=== PATIENT | male | born 1950 | race Caucasian/White ===

== ENCOUNTER → 2018-05-21 08:38 | Outpatient (CLI) | payer MEDICARE, SELFPAY ==
--- NOTE | 2018-05-21 | DI.US.S_ITS ---
PROCEDURE: US RENAL COMPLETE INDICATIONS: CHRONIC KIDNEY DISEASE TECHNIQUE: Real-time scanning was performed of the kidneys and bladder, with image documentation. COMPARISON: [facility], , RENAL COMPLETE, 08/14/2011, 13:07. FINDINGS: Kidneys: Kidneys are normal in size. Right kidney measures 9.5 cm long; left kidney measures 9.4 cm long. Right renal cortical thickness is 1.3 cm; left renal cortical thickness is 1.5 cm. Renal cortical echotexture is normal. No hydronephrosis. 6 mm nonobstructing left renal calcification. Bladder: Pre-void bladder volume is 131 mL. Post-void residual is 10 mL. Pre-void images demonstrate no intraluminal masses or stones. On pre-void images, neither ureteral jets are noted with color Doppler interrogation. (Of note, ureteral jets may not be detectable in up to 25% of cases due to insufficient differences in specific gravity between ureteral and bladder urine). Miscellaneous: No free pelvic fluid. IMPRESSION: 1. 6 mm nonobstructing left renal calcification. Kidneys otherwise are normal. Dictated by: David Moore [facility] Interpreted: Margaret Gongora MD on 05/21/2018 at 10:34 Approved by: Margaret Gongora MD, PhD on 05/21/2018 at 14:51
== END ==
PROVIDERS: Visit Provider Internal Medicine
DX: N18.9 Chronic kidney disease, unspecified (principal); N20.0 Calculus of kidney
CPT/HCPCS: 76770

== ENCOUNTER → 2019-11-27 14:13 | Outpatient (CLI) | payer MEDICARE, SELFPAY ==
[2019-11-27 15:12] LABS: BUN Creatinine Ratio 15.9 (6-22); Blood Urea Nitrogen 29 mg/dL (9-20); Calcium 9.4 mg/dL (8.4-10.2); Carbon Dioxide 23 mmol/L (22-32); Chloride 104 mmol/L (98-107); Estimated Glomerular Filt Rate 37.1 mL/min (>60); Glucose 169 mg/dL (80-110); HEMOLYSIS < 15 (0-50); Potassium 4.6 mmol/L (3.4-5.1); Sodium 138 mmol/L (137-145)
== END ==
PROVIDERS: PCP Internal Medicine; Referring Provider Internal Medicine; Visit Provider Internal Medicine
DX: N18.9 Chronic kidney disease, unspecified (principal)
CPT/HCPCS: 36415; 80048

== ENCOUNTER → 2020-04-03 09:11 | Outpatient (CLI) | payer MEDICARE, SELFPAY ==
[2020-04-04 15:01] LABS: COVID19 Sendout Not Detected (Not Detect)
== END ==
PROVIDERS: PCP Internal Medicine; Visit Provider Physician Assistant
DX: Z01.812 Encounter for preprocedural laboratory examination (principal)
CPT/HCPCS: 87635

== ENCOUNTER 2020-04-06 07:22 | Day surgery (SDC) | payer MEDICARE, SELFPAY ==
--- NOTE | 2020-04-06 | PATH_ITS ---
[facility] Accession Number: [id number] . 01 Material submitted: . colon - DESCENDING COLON POLYP . 01 Clinical history: . A: POLYP X2 . 02 Diagnosis: Descending Colon, Polyp: Hyperplastic polyp. MRV 04/08/2020 1017 Local . 02 Electronically signed: . Jay Tamayo MD, PhD, Pathologist NPI- [id number] . 01 Gross description: . The specimen is received in formalin, labeled descending colon polyp and consists of two zimmerman-pink fragments of soft tissue, measuring 1.2 x 1.0 x 0.3 cm in aggregate. The specimen is entirely submitted in cassette A1. ([id number]) /[facility] 04/07/2020 1738 Local . 02 Pathologist provided ICD-10: K63.5 . 02 CPT . 372184 Performed at: 01 [facility] [address], [place], [place] [id number] MD Jamie Mann MD Phone: [phone] Performed at: 02 [facility] [address] [place], [place] [id number] MD Cailin Londono MD Phone: [phone]
[2020-04-06 07:56] VITALS: BP 156/81; PULSE 92; RESP 16; TEMP 36.6; O2SAT 99; BMI 27.6
--- NOTE | 2020-04-06 08:38 | PM.HP.1 ---
History of Present Illness History of Present Illness Chief complaint: SCREENING COLONOSCOPY Patient History Medical History GERD (gastroesophageal reflux disease) (Acute) High cholesterol (Acute) Hypertension (Acute) Surgical History H/O heart artery stent (Acute) Family & Social History Social History: household members spouse Tobacco & Substance use: Smoking Status Former smoker alcohol intake former Substance Use Type does not use Meds Home Medications and Allergies Home Medications Medication Instructions Recorded Confirmed Type atorvastatin [Lipitor] 40 mg PO HS #0 07/18/12 04/06/20 History folic acid 1 mg PO QDAY #0 07/18/12 04/06/20 History lisinopril 20 mg PO QDAY #0 07/18/12 04/06/20 History pantoprazole [Protonix] 40 mg PO QDAY #0 07/18/12 04/06/20 History amlodipine 5 mg PO DAILY 04/06/20 04/06/20 History aspirin 81 mg PO DAILY 04/06/20 04/06/20 History cetirizine 10 mg PO DAILY 04/06/20 04/06/20 History Allergies Allergy/AdvReac Type Severity Reaction Status Date / Time No Known Drug Allergies Allergy Verified 04/06/20 07:51 Review of Systems Review of Systems ROS: Yes All systems reviewed with the patient and are negative except as otherwise documented Exam Vital Signs (past 8 hours): - 04/06/20 07:56 Temperature 98 F Pulse Rate 92 H Respiratory Rate 16 Blood Pressure 156/81 H Pulse Oximetry 99 Oxygen Delivery Method Room Air Narrative Exam Narrative: Awake alert and oriented x3, pupils equal round reactive to light, oropharynx clear, heart regular rate and rhythm, lungs clear to auscultation bilaterally, abdomen nontender and nondistended, extremities without edema, no gross neurologic deficits noted Assessment & Plan Assessment & Plan narrative: colon cancer screening colonoscopy COVID-19 COVID-19 status: Negative
[2020-04-06] MEDS: fentaNYL 250 MCG/5 ML INJ IV (08:45)
[2020-04-06] MEDS: MIDAZOLAM 5 MG/5 ML VIAL IV (08:46)
[2020-04-06 09:09] VITALS: BP 100/57; PULSE 84; RESP 17; TEMP 36.5; O2SAT 99
--- NOTE | 2020-04-06 09:12 | PM.OP.ENDO ---
Operative Date/Time/Diagnoses Date of procedure: 04/06/20 Procedure & Clinicians Study performed: Colonoscopy with forceps polypectomy Moderate conscious sedation was administered by the endoscopy nurse and supervised by the endoscopist. The following parameters were monitored: Oxygen saturation, heart rate, blood pressure, and response to care. 4mg midazolam and 100mcg fentanyl given. Same procedure as scheduled: Yes Indications: Colon cancer screening Procedure Notes Procedure in detail: Prior to the procedure, history and physical was performed, and patient medications and allergies were reviewed. Preprocedure nursing history and assessment was reviewed. Patient identification and proposed procedure were verified by the physician and nurse in the procedure room. The physical status of the patient was reassessed after the procedure. After informed consent was obtained including risks, benefits, and alternatives, the scope was passed under direct vision. Throughout the procedure, the patient's blood pressure, pulse, and oxygen saturations were monitored continuously. The colonoscope was introduced through the anus and advanced to the cecum as identified by the appendiceal orifice and ileocecal valve. The patient tolerated the procedure well. Bowel prep was deemed adequate to detect polyps greater than 5 mm. Perianal and digital rectal examinations were unremarkable. Retroflexion in the rectum revealed hypertrophied anal papilla and grade 2 internal hemorrhoids. Two polyps measuring 2 mm in diameter were removed from the descending colon with a cold biopsy forceps and retrieved The remainder of the colon was normal-appearing Impression: Hypertrophied anal papilla Internal hemorrhoids Two diminutive polyps removed from the descending colon Sedation minutes: 19 Complications: other (EBL minimal. No complications) Post-procedure Plan for aftercare: Follow-up pathology results Repeat colonoscopy a date to be determined based on pathology results Resume home medications Resume previous diet Patient has a contact number available for emergencies. The signs and symptoms of potential delayed complications were discussed with the patient. Return to normal activities tomorrow. Written discharge instructions were provided to the patient. Discharge home with escort
[2020-04-06 09:15] VITALS: BP 117/60; PULSE 84; RESP 15; O2SAT 97
[2020-04-06 09:20] VITALS: BP 129/67; PULSE 72; RESP 14; TEMP 36.6; O2SAT 99
[2020-04-06 09:40] VITALS: BP 123/66; PULSE 77; RESP 14; TEMP 36.4; O2SAT 99
== END 2020-04-06 09:45 | disposition home or self-care (01) ==
PROVIDERS: PCP Internal Medicine; Referring Provider Internal Medicine; Visit Provider Internal Medicine
PROC: 0DJD8ZZ Inspection of Lower Intestinal Tract, Via Natural or Artificial Opening Endoscopic (ICD-10-PCS; CPT 45378; principal; 2020-04-06 08:30)
DX: Z12.11 Encounter for screening for malignant neoplasm of colon (principal); K63.5 Polyp of colon; K64.1 Second degree hemorrhoids; K62.89 Other specified diseases of anus and rectum; K21.9 Gastro-esophageal reflux disease without esophagitis; I10 Essential (primary) hypertension; E78.00 Pure hypercholesterolemia, unspecified; Z95.5 Presence of coronary angioplasty implant and graft; Z87.891 Personal history of nicotine dependence
CPT/HCPCS: 45380; J2250; J3010

== ENCOUNTER → 2020-05-24 19:16 | Outpatient (ROUT) | payer MEDICARE, SELFPAY ==
[2020-05-24 19:38] LABS: Add Manual Diff / Slide Review NO; Basophils Absolute Auto 0 /uL (0-100); Basophils Percent Auto 0.6 % (0-2); Eosinophils Absolute Auto 600 /uL (0-450); Eosinophils Percent Auto 7.2 % (2-4); Hematocrit 36.1 % (41-53); Hemoglobin 12.2 g/dL (13.5-17.5); Lymphocytes Absolute Auto 2200 /uL (1100-4500); Lymphocytes Percent Auto 28.6 % (25-40); Mean Corpuscular HGB Conc 33.8 % (30-36); Mean Corpuscular Hemoglobin 30.8 PG (26-34); Mean Corpuscular Volume 91.1 fL (80-100); Monocytes Absolute Auto 600 /uL (0-900); Monocytes Percent Auto 7.4 % (3-14); Neutrophils Absolute Auto 4400 /uL (1500-7000); Neutrophils Percent Auto 56.2 % (50-75); Platelet Count 215 X10^3/uL (150-400); Red Blood Cell Count 3.96 X10^6/uL (4.5-5.9); Red Cell Distribution Width 13.4 % (11.6-14.8); White Blood Cell Count 7.8 X10^3/uL (4.5-11.0)
[2020-05-24 19:42] LABS: Aspartate Aminotransferase 22 IU/L (17-59); Blood Urea Nitrogen 20 mg/dL (9-20); Calcium 9.2 mg/dL (8.4-10.2); Carbon Dioxide 27 mmol/L (22-32); Chloride 107 mmol/L (98-107); Cholesterol 145 mg/dL (140-199); Estimated Glomerular Filt Rate 41.2 mL/min (>60); Glucose 103 mg/dL (80-110); HDL Cholesterol 39 mg/dL (40-60); HEMOLYSIS < 15 (0-50); LDL Cholesterol Calculated 86 mg/dL (<100); Phosphorous 3.4 mg/dL (2.3-3.7); Potassium 4.2 mmol/L (3.4-5.1); Sodium 139 mmol/L (137-145); Triglycerides 99 mg/dL (35-150)
[2020-05-24 20:12] LABS: Prostate Specific Antigen 3.95 ng/mL (0.10-4.00)
[2020-05-26 06:09] LABS: Parathyroid Hormone Int 48 pg/mL (15-65)
== END ==
PROVIDERS: PCP Internal Medicine; Visit Provider Internal Medicine
DX: I10 Essential (primary) hypertension (principal); E78.2 Mixed hyperlipidemia; N40.0 Benign prostatic hyperplasia without lower urinary tract symptoms; N18.9 Chronic kidney disease, unspecified
CPT/HCPCS: 80048; 80061; 83970; 84100; 84153; 84450; 85025

== ENCOUNTER → 2020-11-22 18:51 | Outpatient (ROUT) | payer MEDICARE, SELFPAY ==
[2020-11-22 19:28] LABS: Add Manual Diff / Slide Review NO; Basophils Absolute Auto 0 /uL (0-100); Basophils Percent Auto 0.5 % (0-2); Eosinophils Absolute Auto 600 /uL (0-450); Eosinophils Percent Auto 6.2 % (2-4); Hematocrit 37.6 % (41-53); Hemoglobin 12.6 g/dL (13.5-17.5); Lymphocytes Absolute Auto 2100 /uL (1100-4500); Lymphocytes Percent Auto 23.4 % (25-40); Mean Corpuscular HGB Conc 33.6 % (30-36); Mean Corpuscular Hemoglobin 30.8 PG (26-34); Mean Corpuscular Volume 91.6 fL (80-100); Monocytes Absolute Auto 700 /uL (0-900); Monocytes Percent Auto 7.3 % (3-14); Neutrophils Absolute Auto 5700 /uL (1500-7000); Neutrophils Percent Auto 62.6 % (50-75); Platelet Count 187 X10^3/uL (150-400); Red Blood Cell Count 4.11 X10^6/uL (4.5-5.9); Red Cell Distribution Width 13.4 % (11.6-14.8); White Blood Cell Count 9.1 X10^3/uL (4.5-11.0)
[2020-11-22 19:30] LABS: HEMOLYSIS < 15 (0-50); Iron 73 ug/dL (49-181)
[2020-11-22 19:32] LABS: BUN Creatinine Ratio 10.8 (6-22); Blood Urea Nitrogen 20 mg/dL (9-20); Calcium 9.4 mg/dL (8.4-10.2); Carbon Dioxide 26 mmol/L (22-32); Chloride 106 mmol/L (98-107); Estimated Glomerular Filt Rate 36.3 mL/min (>60); Glucose 93 mg/dL (80-110); HEMOLYSIS < 15 (0-50); Phosphorous 3.2 mg/dL (2.3-3.7); Potassium 4.2 mmol/L (3.4-5.1); Sodium 141 mmol/L (137-145)
[2020-11-22 19:45] LABS: Percent Iron Saturation 24 % (20-50); Total Iron Binding Capacity 310 ug/dL (261-462); Transferrin 234 mg/dL (206-381)
[2020-11-22 20:04] LABS: Ferritin 17 ng/mL (18-464)
[2020-11-24 06:36] LABS: Parathyroid Hormone Int 70 pg/mL (15-65)
== END ==
PROVIDERS: PCP Internal Medicine; Visit Provider Internal Medicine
DX: N18.30 Chronic kidney disease, stage 3 unspecified (principal); D64.9 Anemia, unspecified
CPT/HCPCS: 80048; 82728; 83540; 83550; 83970; 84100; 85025

== ENCOUNTER → 2021-12-25 14:58 | Outpatient (CLI) | payer MEDICARE, SELFPAY ==
[2021-12-25 16:27] LABS: Hematocrit 33.9 % (41-53); Hemoglobin 11.8 g/dL (13.5-17.5); Mean Corpuscular Hemoglobin 31.4 PG (26-34); Mean Corpuscular Volume 89.9 fL (80-100); Platelet Count 230 X10^3/uL (150-400); Red Blood Cell Count 3.77 X10^6/uL (4.5-5.9); Red Cell Distribution Width 13.6 % (11.6-14.8); White Blood Cell Count 8.9 X10^3/uL (4.5-11.0)
[2021-12-25 17:38] LABS: Creatinine Urine Random 177.7 mg/dL
[2021-12-25 17:41] LABS: Alanine Aminotransferase 21 IU/L (<50); Albumin Globulin Ratio 1.3 (1.0-2.8); Alkaline Phosphatase 87 U/L (38-126); Aspartate Aminotransferase 26 IU/L (17-59); BUN Creatinine Ratio 13.8 (6-22); Bilirubin Total 0.8 mg/dL (0.2-1.3); Blood Urea Nitrogen 27 mg/dL (9-20); Calcium 8.8 mg/dL (8.4-10.2); Carbon Dioxide 27 mmol/L (22-32); Chloride 105 mmol/L (98-107); Cholesterol 133 mg/dL (140-199); Estimated Glomerular Filt Rate 36 mL/min (>60); Glucose 112 mg/dL (80-110); HDL Cholesterol 34 mg/dL (40-60); HEMOLYSIS < 15 (0-50); LDL Cholesterol Calculated 66 mg/dL (<100); Potassium 4.3 mmol/L (3.4-5.1); Sodium 141 mmol/L (137-145); Triglycerides 163 mg/dL (35-150)
[2021-12-25 17:45] LABS: Microalbumin Urine Random < 0.6 mg/dL (0-1.6)
[2021-12-25 18:04] LABS: TSH w/ Reflex to FT4 1.04 uIU/mL (0.47-4.68)
[2021-12-26 09:09] LABS: Parathyroid Hormone Int 57 pg/mL (15-65)
== END ==
PROVIDERS: PCP Internal Medicine; Referring Provider Internal Medicine; Visit Provider Internal Medicine
DX: E78.2 Mixed hyperlipidemia (principal); I10 Essential (primary) hypertension; N18.32 Chronic kidney disease, stage 3b
CPT/HCPCS: 36415; 80053; 80061; 82043; 82570; 83970; 84443; 85027

== ENCOUNTER → 2022-03-12 14:05 | Outpatient (CLI) | payer MEDICARE, SELFPAY ==
--- NOTE | 2022-03-12 | DI.CT.S_ITS ---
PROCEDURE: CT SINUS SCREEN WO CON INDICATIONS: Chronic pansinusitis TECHNIQUE: Noncontrast 3.0 mm axial images acquired from the frontal sinuses to the mid-sella, with coronal and sagittal reformats. For radiation dose reduction, the following was used: automated exposure control, adjustment of mA and/or kV according to patient size. COMPARISON: [facility], CT, SINUS SCREEN, 10/04/2008, 9:37. FINDINGS: Image quality: Excellent. Maxillary Sinuses: Moderate to prominent mucosal thickening is seen within the maxillary sinuses, left worse than right. There is demineralization of the medial matthew of the maxillary sinuses. Ethmoid Air Cells: There is at least moderate left-sided and moderate right-sided mucosal thickening within the ethmoid air cells. There is demineralization of the bony ethmoid septations. Sphenoid Sinuses: There is at least moderate mucosal thickening seen within the right sphenoid sinus. The left sphenoid sinus appears clear. No fariba bony early remodeling change can be seen. Frontal Sinuses: There is moderate mucosal thickening seen involving the left frontal sinus. Mucosal thickening is seen involving the inferomedial right frontal sinus. The matthew of the frontal sinuses appear overall thickened. Ostiomeatal Complexes: The ostiomeatal complexes are occluded by soft tissue and are demineralized. Miscellaneous: Visualized intra-orbital contents are normal. Abnormal soft tissue can be seen within the nasal cavity, left worse than right, which is attributed to nasal polyps. There is a right-sided arielle bullosa. Mild leftward nasal septal deviation is seen. IMPRESSION: Advanced paranasal sinus disease is seen, left worse than right. Overall, the degree of mucosal thickening is progressed compared to 2008. Areas of bony demineralization are seen, which are consistent with chronic sinusitis. Apparent nasal polyps. Dictated by: Paco Garces M.D. on 03/12/2022 at 13:45 Approved by: Paco Garces M.D. on 03/12/2022 at 13:52
== END ==
PROVIDERS: PCP Internal Medicine; Referring Provider Otolaryngology; Visit Provider Otolaryngology
DX: J32.4 Chronic pansinusitis (principal); J33.9 Nasal polyp, unspecified; J34.89 Other specified disorders of nose and nasal sinuses; R43.8 Other disturbances of smell and taste
CPT/HCPCS: 70486

== ENCOUNTER → 2022-07-06 10:03 | Outpatient (CLI) | payer MEDICARE, SELFPAY ==
[2022-07-06 10:54] LABS: Hemoglobin 11.9 g/dL (13.5-17.5); Mean Corpuscular HGB Conc 33.1 % (30-36); Mean Corpuscular Hemoglobin 30.1 PG (26-34); Mean Corpuscular Volume 90.7 fL (80-100); Platelet Count 240 X10^3/uL (150-400); Red Blood Cell Count 3.96 X10^6/uL (4.5-5.9); Red Cell Distribution Width 13.3 % (11.6-14.8); White Blood Cell Count 7.9 X10^3/uL (4.5-11.0)
[2022-07-06 11:10] LABS: HEMOLYSIS < 15 (0-50); Iron 103 ug/dL (49-181)
[2022-07-06 11:15] LABS: BUN Creatinine Ratio 14.2 (6-22); Blood Urea Nitrogen 32 mg/dL (9-20); Calcium 9.3 mg/dL (8.4-10.2); Carbon Dioxide 23 mmol/L (22-32); Chloride 106 mmol/L (98-107); Estimated Glomerular Filt Rate 30 mL/min (>60); Glucose 154 mg/dL (80-110); HEMOLYSIS < 15 (0-50); Potassium 4.2 mmol/L (3.4-5.1); Sodium 142 mmol/L (137-145)
[2022-07-06 11:23] LABS: Percent Iron Saturation 40 % (20-50); Total Iron Binding Capacity 259 ug/dL (261-462); Transferrin 202 mg/dL (206-381)
[2022-07-06 11:43] LABS: Ferritin 56 ng/mL (18-464)
[2022-07-06 12:14] LABS: Folate 18.7 ng/mL (2.76-20.0); Vitamin B12 662 pg/mL (239-931)
[2022-07-06 14:35] LABS: Creatinine Urine Random 160.1 mg/dL
[2022-07-06 14:46] LABS: Microalbumin Urine Random < 0.6 mg/dL (0-1.6)
== END ==
PROVIDERS: PCP Internal Medicine; Referring Provider Internal Medicine; Visit Provider Internal Medicine
DX: N18.9 Chronic kidney disease, unspecified (principal); I10 Essential (primary) hypertension; I25.10 Atherosclerotic heart disease of native coronary artery without angina pectoris; N18.32 Chronic kidney disease, stage 3b; E53.8 Deficiency of other specified B group vitamins; D63.1 Anemia in chronic kidney disease
CPT/HCPCS: 36415; 80048; 82043; 82570; 82607; 82728; 82746; 83540; 83550; 85027

== ENCOUNTER → 2022-07-12 08:01 | Outpatient (CLI) | payer MEDICARE, SELFPAY ==
[2022-07-12 08:57] LABS: BUN Creatinine Ratio 12.9 (6-22); Blood Urea Nitrogen 25 mg/dL (9-20); Calcium 9.1 mg/dL (8.4-10.2); Carbon Dioxide 25 mmol/L (22-32); Chloride 106 mmol/L (98-107); Estimated Glomerular Filt Rate 36 mL/min (>60); Glucose 98 mg/dL (80-110); HEMOLYSIS < 15 (0-50); Potassium 4.5 mmol/L (3.4-5.1); Sodium 139 mmol/L (137-145)
== END ==
PROVIDERS: PCP Internal Medicine; Referring Provider Internal Medicine; Visit Provider Internal Medicine
DX: N18.4 Chronic kidney disease, stage 4 (severe) (principal)
CPT/HCPCS: 36415; 80048

== ENCOUNTER → 2023-01-07 10:48 | Outpatient (CLI) | payer MEDICARE, SELFPAY ==
[2023-01-07 12:22] LABS: Hematocrit 36.1 % (41-53); Hemoglobin 12.5 g/dL (13.5-17.5); Mean Corpuscular HGB Conc 34.6 % (30-36); Mean Corpuscular Hemoglobin 31.4 PG (26-34); Mean Corpuscular Volume 90.7 fL (80-100); Platelet Count 198 X10^3/uL (150-400); Red Blood Cell Count 3.98 X10^6/uL (4.5-5.9); Red Cell Distribution Width 13.5 % (11.6-14.8)
[2023-01-07 12:29] LABS: BUN Creatinine Ratio 13.7 (6-22); Blood Urea Nitrogen 29 mg/dL (9-20); Calcium 9.4 mg/dL (8.4-10.2); Carbon Dioxide 26 mmol/L (22-32); Chloride 107 mmol/L (98-107); Estimated Glomerular Filt Rate 32 mL/min (>60); Glucose 108 mg/dL (80-110); HEMOLYSIS < 15 (0-50); Potassium 4.2 mmol/L (3.4-5.1); Sodium 140 mmol/L (137-145)
[2023-01-09 07:23] LABS: Calcium 9.5 mg/dL (8.6-10.2); Parathyroid Hormone, Intact 36 pg/mL (15-65)
== END ==
PROVIDERS: PCP Internal Medicine; Referring Provider Internal Medicine; Visit Provider Internal Medicine
DX: N18.32 Chronic kidney disease, stage 3b (principal)
CPT/HCPCS: 36415; 80048; 82310; 83970; 85027

== ENCOUNTER → 2023-07-15 15:15 | Outpatient (CLI) | payer MEDICARE, SELFPAY ==
[2023-07-15 16:26] LABS: Hematocrit 36.5 % (41-53); Hemoglobin 12.2 g/dL (13.5-17.5); Mean Corpuscular HGB Conc 33.5 % (30-36); Mean Corpuscular Hemoglobin 30.5 PG (26-34); Platelet Count 207 X10^3/uL (150-400); Red Blood Cell Count 4.01 X10^6/uL (4.5-5.9); Red Cell Distribution Width 13.4 % (11.6-14.8); White Blood Cell Count 8.5 X10^3/uL (4.5-11.0)
[2023-07-15 16:54] LABS: Aspartate Aminotransferase 22 IU/L (17-59); BUN Creatinine Ratio 10.2 (6-22); Blood Urea Nitrogen 22 mg/dL (9-20); Carbon Dioxide 25 mmol/L (22-32); Chloride 106 mmol/L (98-107); Cholesterol 143 mg/dL (140-199); Estimated Glomerular Filt Rate 32 mL/min (>60); Glucose 150 mg/dL (80-110); HDL Cholesterol 35 mg/dL (40-60); HEMOLYSIS < 15 (0-50); LDL Cholesterol Calculated 78 mg/dL (<100); Sodium 138 mmol/L (137-145); Triglycerides 150 mg/dL (35-150)
[2023-07-15 17:23] LABS: Prostate Specific Antigen 4.23 ng/mL (0.10-4.00)
== END ==
PROVIDERS: PCP Internal Medicine; Referring Provider Internal Medicine; Visit Provider Internal Medicine
DX: N18.9 Chronic kidney disease, unspecified (principal); N40.1 Benign prostatic hyperplasia with lower urinary tract symptoms; D63.1 Anemia in chronic kidney disease; E78.2 Mixed hyperlipidemia; N18.32 Chronic kidney disease, stage 3b; N13.8 Other obstructive and reflux uropathy
CPT/HCPCS: 36415; 80048; 80061; 84153; 84450; 85027

== ENCOUNTER → 2024-01-23 15:01 | Outpatient (CLI) | payer MEDICARE, SELFPAY ==
[2024-01-23 15:35] LABS: Hematocrit 34.1 % (41-53); Hemoglobin 11.7 g/dL (13.5-17.5); Mean Corpuscular HGB Conc 34.3 % (30-36); Mean Corpuscular Hemoglobin 30.9 PG (26-34); Mean Corpuscular Volume 89.9 fL (80-100); Platelet Count 189 X10^3/uL (150-400); Red Blood Cell Count 3.79 X10^6/uL (4.5-5.9); Red Cell Distribution Width 13.6 % (11.6-14.8); White Blood Cell Count 7.4 X10^3/uL (4.5-11.0)
[2024-01-23 15:47] LABS: BUN Creatinine Ratio 12.2 (6-22); Blood Urea Nitrogen 27 mg/dL (9-20); Calcium 8.8 mg/dL (8.4-10.2); Carbon Dioxide 22 mmol/L (22-32); Chloride 111 mmol/L (98-107); Estimated Glomerular Filt Rate 31 mL/min (>60); Glucose 98 mg/dL (80-110); HEMOLYSIS < 15 (0-50); Potassium 3.9 mmol/L (3.4-5.1); Sodium 140 mmol/L (137-145)
[2024-01-23 16:19] LABS: Prostate Specific Antigen 4.74 ng/mL (0.10-4.00)
[2024-01-24 09:10] LABS: Calcium 8.9 mg/dL (8.6-10.2); Parathyroid Hormone, Intact 61 pg/mL (15-65)
== END ==
PROVIDERS: PCP Internal Medicine; Referring Provider Internal Medicine; Visit Provider Internal Medicine
DX: N18.9 Chronic kidney disease, unspecified (principal); N40.1 Benign prostatic hyperplasia with lower urinary tract symptoms; D63.1 Anemia in chronic kidney disease; N18.32 Chronic kidney disease, stage 3b; N13.8 Other obstructive and reflux uropathy
CPT/HCPCS: 36415; 80048; 82310; 83970; 84153; 85027

== ENCOUNTER → 2024-07-27 16:44 | Outpatient (CLI) | payer MEDICARE, SELFPAY ==
[2024-07-27 17:35] LABS: Hematocrit 37.1 % (41-53); Hemoglobin 12.4 g/dL (13.5-17.5); Mean Corpuscular HGB Conc 33.4 % (30-36); Mean Corpuscular Hemoglobin 30.7 PG (26-34); Mean Corpuscular Volume 92.1 fL (80-100); Platelet Count 227 X10^3/uL (150-400); Red Blood Cell Count 4.02 X10^6/uL (4.5-5.9); Red Cell Distribution Width 13.7 % (11.6-14.8); White Blood Cell Count 9.4 X10^3/uL (4.5-11.0)
[2024-07-27 17:51] LABS: Alanine Aminotransferase 17 IU/L (<50); Albumin 4.3 g/dL (3.5-5.0); Albumin Globulin Ratio 1.5 (1.0-2.8); Alkaline Phosphatase 99 U/L (38-126); Aspartate Aminotransferase 23 IU/L (17-59); BUN Creatinine Ratio 10.8 (6-22); Bilirubin Total 0.7 mg/dL (0.2-1.3); Blood Urea Nitrogen 21 mg/dL (9-20); Calcium 9.4 mg/dL (8.4-10.2); Carbon Dioxide 24 mmol/L (22-32); Chloride 107 mmol/L (98-107); Cholesterol 147 mg/dL (140-199); Estimated Glomerular Filt Rate 36 mL/min (>60); Globulin 2.8 g/dL (1.7-4.1); Glucose 95 mg/dL (80-110); HDL Cholesterol 40 mg/dL (40-60); HEMOLYSIS < 15 (0-50); LDL Cholesterol Calculated 75 mg/dL (<100); Potassium 4.5 mmol/L (3.4-5.1); Sodium 138 mmol/L (137-145); Total Protein 7.1 g/dL (6.3-8.2); Triglycerides 159 mg/dL (35-150)
[2024-07-27 18:21] LABS: Prostate Specific Antigen 5.43 ng/mL (0.10-4.00)
== END ==
PROVIDERS: PCP Internal Medicine; Referring Provider Internal Medicine; Visit Provider Internal Medicine
DX: E78.2 Mixed hyperlipidemia (principal); N40.1 Benign prostatic hyperplasia with lower urinary tract symptoms; N13.8 Other obstructive and reflux uropathy; N18.32 Chronic kidney disease, stage 3b
CPT/HCPCS: 36415; 80053; 80061; 84153; 85027

== ENCOUNTER 2024-09-20 18:10 | Emergency (ER) | payer MEDICARE, SELFPAY ==
[2024-09-20 18:17] VITALS: BP 129/59; PULSE 60; RESP 16; TEMP 36.8; O2SAT 99; BMI 28.6
--- NOTE | 2024-09-20 18:27 | EKG_ITS ---
[place] [id number] [place] [id number] Test Date: 2024-09-20 Pat Name: Calvin Charles Department: Room: Gender: Male Professional Organizer: : 1950 Requested By: Order Number: [id number] Reading MD: Priyank Bermudez Measurements Intervals [place] Rate: 60 P: 23 DC: 182 QRS: 19 QRSD: 96 T: 95 QT: 388 QTc: 388 Interpretive Statements Critical Test Result: STEMI Sinus rhythm with premature atrial complexes Inferior infarct , possibly acute ACUTE AL / STEMI Consider right ventricular involvement in acute inferior infarct Electronically Signed On 09-28-2024 18:53:29 PDT by Priyank Bermudez
--- NOTE | 2024-09-20 18:30 | ED.CHESTPAIN ---
HPI - Chest Pain General Chief Complaint: Extremity Problem,Nontraumatic Stated Complaint: Rt arm px, Time Seen by Provider: 09/20/24 18:30 History of Present Illness HPI narrative: 74-year-old gentleman history of CAD x1 stent back in 2003. Patient presents with right-sided chest pain intermittent today described as heaviness 8/10 with shortness of breath he did not get nauseous or diaphoretic. He did take aspirin prior to arrival. He has no radiating symptoms, no nausea or vomiting or diaphoresis. Other than what is stated 14 point review of system is negative Related Data Home Medications Medication Instructions Recorded Confirmed aspirin 81 mg tablet,delayed 81 mg PO DAILY 04/06/20 07/27/24 release cetirizine 10 mg tablet 10 mg PO DAILY 04/06/20 07/27/24 BUDESONIDE 1 cap Not Applicable BID 12/25/21 07/27/24 cholecalciferol (vitamin D3) 50 50 mcg PO DAILY 12/25/21 07/27/24 mcg (2,000 unit) capsule glucosamine sxx-[id number]-ycg 1 tab PO DAILY 07/15/23 07/27/24 Previous Rx's Medication Instructions Recorded nitroglycerin 0.4 mg sublingual 0.4 mg sublingual Q5-15M PRN chest 01/23/24 tablet pain #25 tabs atorvastatin 40 mg tablet 40 mg PO DAILY #90 tabs 06/29/24 lisinopril 20 mg tablet 20 mg PO DAILY #90 tabs 06/29/24 pantoprazole 40 mg tablet,delayed 40 mg PO DAILY #90 tabs 06/29/24 release empagliflozin 10 mg tablet 10 mg PO DAILY #90 tabs 07/27/24 (Jardiance) amlodipine 5 mg tablet 5 mg PO DAILY #90 tabs 09/14/24 Allergies Allergy/AdvReac Type Severity Reaction Status Date / Time No Known Drug Allergies Allergy Verified 07/27/24 16:10 Patient History Medical History Allergic rhinitis Anemia in chronic kidney disease BPH w urinary obs/LUTS Coronary artery disease Essential hypertension GERD (gastroesophageal reflux disease) GERD without esophagitis History of colonic polyps Measles (~1956) Mixed hyperlipidemia Overweight Recurrent sinusitis Stage 3b chronic kidney disease (CKD) Venous (peripheral) insufficiency Surgical History Anesthesia H/O heart artery stent Family History Mother Diabetes mellitus Brother Alcoholism Grandfather History of heart disease Grandmother Stroke Grandmother Stroke Social History household members: spouse alcohol intake: former Exam Narrative Exam Narrative: GENERAL: 74 year old patient appears stated age. Well-developed patient, in mild distress. HEAD: Atraumatic. Normocephalic. EYES: Pupils equal round and reactive. Extraocular motions intact. No scleral icterus. No injection or drainage. ENT: Nose without bleeding, purulent drainage. Throat without erythema, tonsillar hypertrophy or exudate. Airway patent. NECK: Trachea midline. Non tender CARDIOVASCULAR: Regular rate and rhythm without murmurs, gallops, or rubs. RESPIRATORY: Clear to auscultation. Breath sounds equal bilaterally. No wheezes, rales, or rhonchi. GASTROINTESTINAL: Abdomen soft, non-tender, nondistended. EXTREMITIES: No edema or joint tenderness. BACK: Nontender without deformity or crepitance. No flank tenderness. NEURO: AOx3. SKIN: No rash or erythema of visible areas Course Orders Ordered: ED Orders 09/20/24 18:20 EKG-12 Lead Stat MDM - Chest Pain ECG Data Attestation: I personally reviewed and interpreted this ECG as follows: Interpretation: Inferior ND HR 60 IA 182 QRS [address] elevation II, III, AVF MDM Narrative Medical decision making narrative: EKG reviewed inferior ND patient given aspirin heparin heart rate of 60 beta-miladys held. Case discussed with the Dr.Zaxby UMA VERNON at [facility] who has graciously accepted patient for transfer to catheterization laboratory technician with medical customer service representative notified. Differential diagnosis STEMI, NSTEMI, unstable angina. 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 MIX WITH 1 CUP OF SALINE SOLUTION AND IRRIGATE EACH NOSTRIL WITH 1/2 OF MEDICATED SOLUTION. cholecalciferol (vitamin D3) 50 mcg (2,000 unit) capsule 50 mcg PO DAILY glucosamine ftx-keucwrcmjc-dqa 1 tab PO DAILY Jardiance 10 mg tablet 10 mg PO DAILY Qty: 90 3RF cetirizine 10 mg Tablet 10 mg PO DAILY aspirin 81 mg Tablet,Delayed Release (Dr/Ec) 81 mg PO DAILY Referrals: Peterson Porras MD [Primary Care Provider] -
[2024-09-20] MEDS: ASPIRIN 81 MG CHEW TAB 324 MG PO (18:37)
[2024-09-20] MEDS: HEPARIN 5,000 UNIT/ML VIAL 5000 UNIT IV (18:38)
[2024-09-20] MEDS: HEPARIN DRIP 25,000 UNIT/500 ML IV.SOLN 18.7 UNIT IV (18:39)
[2024-09-20] MEDS: MORPHINE 4 MG/ML INJ IV (18:41)
[2024-09-20 18:44] LABS: Add Manual Diff / Slide Review NO; Basophils Absolute Auto 200 /uL (0-100); Basophils Percent Auto 1.2 % (0-2); Eosinophils Absolute Auto 500 /uL (0-450); Eosinophils Percent Auto 3.9 % (2-4); Hematocrit 35.4 % (41-53); Hemoglobin 11.9 g/dL (13.5-17.5); Lymphocytes Absolute Auto 2600 /uL (1100-4500); Lymphocytes Percent Auto 18.6 % (25-40); Mean Corpuscular HGB Conc 33.7 % (30-36); Mean Corpuscular Hemoglobin 30.7 PG (26-34); Mean Corpuscular Volume 91.2 fL (80-100); Monocytes Absolute Auto 900 /uL (0-900); Monocytes Percent Auto 6.7 % (3-14); Neutrophils Absolute Auto 9600 /uL (1500-7000); Neutrophils Percent Auto 69.6 % (50-75); Platelet Count 215 X10^3/uL (150-400); Red Blood Cell Count 3.87 X10^6/uL (4.5-5.9); Red Cell Distribution Width 13.6 % (11.6-14.8); White Blood Cell Count 13.8 X10^3/uL (4.5-11.0)
[2024-09-20 18:51] LABS: Prothrombin Time 11.5 SECONDS (9.4-12.5)
--- NOTE | 2024-09-20 18:53 | PC.NURSE ---
Pt left with heparin gtt @ 18.7ml/hr w/ ALS AFD crew
[2024-09-20 18:54] LABS: Alanine Aminotransferase 20 IU/L (<50); Albumin 4.3 g/dL (3.5-5.0); Albumin Globulin Ratio 1.3 (1.0-2.8); Alkaline Phosphatase 111 U/L (38-126); Aspartate Aminotransferase 23 IU/L (17-59); BUN Creatinine Ratio 12.9 (6-22); Bilirubin Total 0.8 mg/dL (0.2-1.3); Blood Urea Nitrogen 29 mg/dL (9-20); Calcium 9.1 mg/dL (8.4-10.2); Carbon Dioxide 20 mmol/L (22-32); Chloride 108 mmol/L (98-107); Creatine Kinase 134 U/L (55-170); Estimated Glomerular Filt Rate 30 mL/min (>60); Globulin 3.2 g/dL (1.7-4.1); Glucose 128 mg/dL (80-110); HEMOLYSIS < 15 (0-50); Lipase 111 U/L (23-300); Magnesium 1.6 mg/dL (1.6-2.3); PTT Partial Thromboplastin Tim 24 SECONDS (25.1-36.5); Sodium 140 mmol/L (137-145); Total Protein 7.5 g/dL (6.3-8.2)
[2024-09-20 18:55] VITALS: BP 136/67; PULSE 73; RESP 18; O2SAT 100
[2024-09-20 19:05] LABS: NT-proBNP (BNP-Adult 18+) 1300 pg/mL (<125)
[2024-09-20 19:09] LABS: Troponin I 0.123 ng/mL (0.01-0.034)
== END 2024-09-20 18:57 | disposition short-term general hospital (02) ==
PROVIDERS: Emergency Provider Family Medicine; PCP Internal Medicine
DX: I21.3 ST elevation (STEMI) myocardial infarction of unspecified site (principal); I25.10 Atherosclerotic heart disease of native coronary artery without angina pectoris; Z95.5 Presence of coronary angioplasty implant and graft
CPT/HCPCS: 80053; 82550; 83690; 83735; 83880; 84484; 85025; 85610; 85730; 93005; 96374; 96375; 99283; 99284; J1644; J2270

== ENCOUNTER → 2024-09-30 14:57 | Outpatient (CLI) | payer MEDICARE, SELFPAY ==
[2024-09-30 17:12] LABS: Hematocrit 32.4 % (41-53); Mean Corpuscular HGB Conc 33.8 % (30-36); Mean Corpuscular Hemoglobin 31.3 PG (26-34); Mean Corpuscular Volume 92.7 fL (80-100); Platelet Count 298 X10^3/uL (150-400); Red Cell Distribution Width 13.8 % (11.6-14.8); White Blood Cell Count 9.5 X10^3/uL (4.5-11.0)
[2024-09-30 17:31] LABS: Alanine Aminotransferase 23 IU/L (<50); Albumin 4.2 g/dL (3.5-5.0); Albumin Globulin Ratio 1.4 (1.0-2.8); Alkaline Phosphatase 100 U/L (38-126); Aspartate Aminotransferase 22 IU/L (17-59); BUN Creatinine Ratio 14.5 (6-22); Bilirubin Total 0.7 mg/dL (0.2-1.3); Blood Urea Nitrogen 32 mg/dL (9-20); Calcium 9.3 mg/dL (8.4-10.2); Carbon Dioxide 21 mmol/L (22-32); Chloride 109 mmol/L (98-107); Cholesterol 119 mg/dL (140-199); Estimated Glomerular Filt Rate 30 mL/min (>60); Globulin 2.9 g/dL (1.7-4.1); Glucose 112 mg/dL (80-110); HDL Cholesterol 29 mg/dL (40-60); HEMOLYSIS < 15 (0-50); LDL Cholesterol Calculated 62 mg/dL (<100); Potassium 4.6 mmol/L (3.4-5.1); Sodium 140 mmol/L (137-145); Total Protein 7.1 g/dL (6.3-8.2); Triglycerides 139 mg/dL (35-150)
== END ==
PROVIDERS: PCP Internal Medicine; Referring Provider Internal Medicine; Visit Provider Internal Medicine
DX: I22.1 Subsequent ST elevation (STEMI) myocardial infarction of inferior wall (principal); E78.2 Mixed hyperlipidemia
CPT/HCPCS: 36415; 80053; 80061; 85027

== ENCOUNTER → 2024-10-22 17:18 | Outpatient (CLI) | payer MEDICARE, SELFPAY | PROVIDERS: PCP Internal Medicine; Referring Provider Internal Medicine; Visit Provider Internal Medicine | DX: R19.7 Diarrhea, unspecified (principal) | CPT/HCPCS: 87324 ==

== ENCOUNTER → 2024-10-27 13:30 | Outpatient (CLI) | payer MEDICARE, SELFPAY ==
--- NOTE | 2024-10-27 13:32 | DI.NM.S_ITS ---
PROCEDURE: NM SAROJ PERF SPECT REST & STR Rest and exercise myocardial perfusion SPECT with gated imaging and ejection fraction RADIOPHARMACEUTICAL: 25.6 mCi Tc-99m sestamibi IV at rest and 25.9 mCi Tc-99m sestamibi IV at peak exercise. A 2 day-protocol was performed. INDICATIONS: CAD, S/P ANGIOPLASTY WITH STENT PQRS ATTESTATIONS: Measure 322 - Is this imaging test primarily performed on a low-risk surgery patient for preoperative evaluation within 30 days preceding their low-risk non-cardiac surgery? Low-risk surgery is defined as cardiac or myocardial infarction less than 1%, including (but not limited to) endoscopic procedures, superficial procedures, cataract surgery, and excisional breast surgery: Answer: No Measure 323 - Is this imaging test performed primarily for the monitoring of an asymptomatic patient who had percutaneous coronary intervention on the visit date or within 2 years of the visit date? Answer: No Measure 324 - Is this imaging test performed primarily for the initial detection and risk assessment on an asymptomatic, low coronary heart disease patient? Low CHD risk definition = clinicians should consider the maximum number of available patient factors used to estimate risk based on [place] (ATP III criteria), typically age, gender, diabetes, smoking status, and use of blood pressure medication, and integrate age appropriate estimates for missing elements, such as LDL or standard blood pressure. Answer: No TECHNIQUE: Radiopharmaceutical was injected at peak stress test, and also at rest. SPECT images were obtained. SPECT myocardial perfusion images were displayed in short axis, horizontal long axis, and vertical long axis views. Gated images were reviewed using ActimagineQUANT software. COMPARISON: None. CARDIAC STRESS: A standard Raad treadmill exercise tolerance test was performed by the patient under the supervision of an attending staff. The patient exercised for 6 minutes and 0 seconds; functional aerobic impairment (AILEEN) is positive to %. Hemodynamic data: There is normal blood pressure and heart rate response to exercise stress. Patient achieved 99% of maximum predicted heart rate at peak exercise. Symptoms: Patient denied chest pain during exercise. EKG: No diagnostic EKG changes of ischemia; frequent PACs noted in recovery. No ventricular arrhythmias noted. FINDINGS: Raw data: There is good myocardial labeling by radiotracer. No significant motion artifacts. Jwuh-lx-imlju ratio is 0.33 (normal is less than 0.38 for sestamibi tracer, and less than 0.50 for thallium tracer). Left ventricle function: Gated images demonstrate normal left ventricle wall thickening. No segmental wall motion abnormality. No transient ischemic dilation; TID is 1.00 (normal less than 1.3). The left ventricle resting end-diastolic volume is 85 mL. Left ventricle stress ejection fraction is 71%; normal values are above 45%. Myocardial perfusion: Rest images had mild hypoperfusion in the inferior segment. However there was increased subdiaphragmatic activity. Stress and prone images had no perfusion defects. IMPRESSION: 1. Negative exercise myocardial perfusion scan for ischemia and infarction. 2. Average exercise tolerance. Dictated by: Maxx Kumari M.D. on 11/04/2024 at 17:32 Approved by: Maxx Kumari M.D. on 11/04/2024 at 17:35
== END ==
PROVIDERS: PCP Internal Medicine; Referring Provider Nurse Practitioner Family; Visit Provider Nurse Practitioner Family
DX: I25.10 Atherosclerotic heart disease of native coronary artery without angina pectoris (principal); I24.0 Acute coronary thrombosis not resulting in myocardial infarction; Z95.820 Peripheral vascular angioplasty status with implants and grafts
CPT/HCPCS: 78452; 93017; A9502

== ENCOUNTER → 2025-01-27 16:13 | Outpatient (CLI) | payer MEDICARE, SELFPAY ==
[2025-01-27 16:39] LABS: Hematocrit 35.3 % (41-53); Hemoglobin 11.7 g/dL (13.5-17.5); Mean Corpuscular HGB Conc 33.1 % (30-36); Mean Corpuscular Hemoglobin 29.4 PG (26-34); Mean Corpuscular Volume 88.7 fL (80-100); Platelet Count 189 X10^3/uL (150-400)
[2025-01-27 16:59] LABS: Blood Urea Nitrogen 33 mg/dL (9-20); Calcium 9.2 mg/dL (8.4-10.2); Carbon Dioxide 21 mmol/L (22-32); Chloride 109 mmol/L (98-107); Estimated Glomerular Filt Rate 35 mL/min (>60); Glucose 88 mg/dL (70-99); HEMOLYSIS < 15 (0-50); Potassium 4.5 mmol/L (3.4-5.1); Sodium 140 mmol/L (137-145)
== END ==
PROVIDERS: PCP Internal Medicine; Referring Provider Internal Medicine; Visit Provider Internal Medicine
DX: N18.32 Chronic kidney disease, stage 3b (principal)
CPT/HCPCS: 36415; 80048; 82043; 82310; 82570; 83970; 85027

== ENCOUNTER 2025-04-09 12:56 | Emergency (ER) | payer MEDICARE, SELFPAY ==
[2025-04-09] VITALS (34 sets, daily range): BP systolic 148–199; BP diastolic 63–117; PULSE 57–77; RESP 8–24; TEMP 36.9; O2SAT 96–100; BMI 27.4
--- NOTE | 2025-04-09 13:32 | DI.RAD.S_ITS ---
PROCEDURE: XR CHEST 1V INDICATIONS: Chest Pain TECHNIQUE: One view of the chest was acquired. COMPARISON: None. FINDINGS: Surgical changes and devices: None. Lungs and pleura: Lungs are clear. No pleural effusions or pneumothorax. Mediastinum: Mediastinal contours appear normal. Heart size is normal. Bones and chest wall: No suspicious bony lesions. Overlying soft tissues appear unremarkable. IMPRESSION: No acute cardiopulmonary abnormality is seen. Dictated by: Bola Arrington M.D. on 04/09/2025 at 13:58 Approved by: Bola Arrington M.D. on 04/09/2025 at 13:59
--- NOTE | 2025-04-09 13:52 | DI.RAD.S_ITS ---
PROCEDURE: XR SHOULDER RT MIN 2V INDICATIONS: shoulder pain TECHNIQUE: 3 views of the shoulder were acquired. COMPARISON: None. FINDINGS: Bones: No fractures or dislocations. No suspicious bony lesions. Visualized ribs appear intact. Soft tissues: No suspicious soft tissue calcifications. IMPRESSION: No acute bony abnormality. Dictated by: Kem Guajardo M.D. on 04/09/2025 at 14:26 Approved by: Kem Guajardo M.D. on 04/09/2025 at 14:31
[2025-04-09 13:58] LABS: Add Manual Diff / Slide Review NO; Hematocrit 34.2 % (41-53); Hemoglobin 11.6 g/dL (13.5-17.5); Lymphocytes Absolute Auto 2100 /uL (1100-4500); Mean Corpuscular HGB Conc 33.9 % (30-36); Mean Corpuscular Hemoglobin 29.1 PG (26-34); Mean Corpuscular Volume 85.9 fL (80-100); Platelet Count 182 X10^3/uL (150-400)
--- NOTE | 2025-04-09 13:59 | EKG_ITS ---
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
[2025-04-09 14:05] LABS: INR 0.9 (0.9-1.3); Prothrombin Time 10.2 SECONDS (9.4-12.5)
[2025-04-09 14:08] LABS: PTT Partial Thromboplastin Tim 17 SECONDS (25.1-36.5)
[2025-04-09 14:09] LABS: Alanine Aminotransferase 17 IU/L (<50); Albumin 4.4 g/dL (3.5-5.0); Albumin Globulin Ratio 1.3 (1.0-2.8); Alkaline Phosphatase 95 U/L (38-126); Blood Urea Nitrogen 35 mg/dL (9-20); Calcium 9.4 mg/dL (8.4-10.2); Carbon Dioxide 22 mmol/L (22-32); Chloride 109 mmol/L (98-107); Creatine Kinase 160 U/L (55-170); Estimated Glomerular Filt Rate 36 mL/min (>60); Globulin 3.3 g/dL (1.7-4.1); Glucose 98 mg/dL (70-99); HEMOLYSIS < 15 (0-50); Lipase 183 U/L (23-300); Magnesium 1.8 mg/dL (1.6-2.3); Potassium 4.1 mmol/L (3.4-5.1); Sodium 141 mmol/L (137-145); Total Protein 7.7 g/dL (6.3-8.2)
[2025-04-09] MEDS: ASPIRIN 81 MG CHEW TAB 324 MG PO (14:09)
[2025-04-09 14:21] LABS: NT-proBNP (BNP-Adult 18+) 2540 pg/mL (<450); Troponin I < 0.012 ng/mL (0.01-0.034)
[2025-04-09] MEDS: NITROGLYCERIN 0.4 MG SL TAB SL (14:24)
[2025-04-09] MEDS: METOPROLOL TARTRATE 5 MG/5 ML INJ IV (14:31)
--- NOTE | 2025-04-09 14:57 | ED.EXTPRO ---
HPI - Extremity Problem General Chief complaint: Extremity Problem,Nontraumatic Stated complaint: R shoulder pn w/exertion, worried it's heart relat Time Seen by Provider: 04/09/25 13:02 Source: patient, RN notes reviewed and old records reviewed Mode of arrival: Ambulatory Limitations: no limitations History of Present Illness HPI Narrative: 75-year-old male with a history of coronary artery disease with prior stent in the RCA in September of 2024 has had a proximal LAD stent placed in 2002. Hypertension, dyslipidemia, former smoker on aspirin 81 mg daily, Plavix daily. Patient states he has had chest pain that radiates to his right shoulder has been going on since about January has not been coming increasing lower frequent but notes that any time he walks up a hill or exerts himself he has symptoms it will resolve with rest. He states he has not had any symptoms when he is at rest. He states very similar 20 had prior STEMI although he states not as intense. States only a couple minutes before it resolves what it is rest. Denies fevers or chills so we are going to little short of breath with these episodes he denies any diaphoresis. One time he states he got nauseated but has not had any vomiting or nausea since. Denies any syncope. No swelling in extremities no issues with bowel movements. Patient notes he did have a stress test in October of 2024 but was not having episodes at this time. He states this feels similar to when he had his heart attack he did have a fall about a month ago on his right shoulder he notes sometimes his shoulder hurts but movement does not seem to recreate the symptoms. He follows with Dr. Chavez for cardiology and Dr. Porras for primary care. He is scheduled to see Dr. Chavez in May. He did not have a dose of nitro here in the department but states he was asymptomatic at the time when he received the medication. Related Data Home Medications ?Medication ?Instructions ?Recorded ?Confirmed aspirin 81 mg tablet,delayed 81 mg PO DAILY 04/06/20 01/27/25 release cetirizine 10 mg tablet 10 mg PO DAILY 04/06/20 01/27/25 BUDESONIDE 1 cap Not Applicable BID 12/25/21 01/27/25 cholecalciferol (vitamin D3) 50 50 mcg PO DAILY 12/25/21 01/27/25 mcg (2,000 unit) capsule glucosamine [id number] 1 tab PO DAILY 07/15/23 01/27/25 Previous Rx's ?Medication ?Instructions ?Recorded nitroglycerin 0.4 mg sublingual 0.4 mg sublingual Q5-15M PRN chest 01/23/24 tablet pain #25 tabs pantoprazole 40 mg tablet,delayed 40 mg PO DAILY #90 tabs 06/29/24 release empagliflozin 10 mg tablet 10 mg PO DAILY #90 tabs 07/27/24 (Jardiance) atorvastatin 80 mg tablet 80 mg PO BEDTIME #90 tabs 09/30/24 clopidogrel 75 mg tablet 75 mg PO DAILY #90 tabs 09/30/24 metoprolol succinate 25 mg 25 mg PO DAILY #90 tabs 09/30/24 tablet,extended release 24 hr Allergies Allergy/AdvReac Type Severity Reaction Status Date / Time No Known Drug Allergies Allergy Verified 04/09/25 13:14 Review of Systems Review of Systems ROS Unobtainable: All systems reviewed & are unremarkable except as noted in HPI and below Patient History Medical History BPH w urinary obs/LUTS Venous (peripheral) insufficiency Anemia in chronic kidney disease Overweight Coronary artery disease History of colonic polyps Allergic rhinitis GERD without esophagitis Stage 3b chronic kidney disease (CKD) Mixed hyperlipidemia Essential hypertension Measles (~1956) Recurrent sinusitis GERD (gastroesophageal reflux disease) Surgical History Anesthesia H/O heart artery stent Family History Mother Diabetes mellitus Brother Alcoholism Grandfather History of heart disease Grandmother Stroke Grandmother Stroke Social History household members: spouse Smoking Status: Never smoker alcohol intake: former Smoking Status: Never smoker Exam Narrative Exam Narrative: GENERAL: Alert and oriented x three, elderly male in mild distress HEENT: Head normocephalic, atraumatic, EOMI, pupils reactive, face symmetric, moist mucous membranes NECK: Supple, full range of motion CARDIOVASCULAR: Regular rate and rhythm without murmurs, rubs or gallops. No edema bilateral lower extremities. No JVD. RESPIRATORY: Breath sounds equal bilaterally, no wheezes rales or rhonchi. ABDOMEN: Soft, nontender. Normoactive bowel sounds all 4 quadrants. No guarding or rebound, rigidity, no mass : No CVA tenderness EXTREMITIES: Normal range of motion, no clubbing or edema. Neurovascularly intact. Nontender over the shoulder. NEUROLOGICAL: Cranial nerves II through XII grossly intact. Moving all extremities SKIN: Warm, dry, no petechiae, no rashes or lesions. Initial Vital Signs Initial Vital Signs: Vital Signs Temperature 98.5 F 04/09/25 13:10 Pulse Rate 72 04/09/25 13:10 Respiratory Rate 18 04/09/25 13:10 Blood Pressure 199/83 H 04/09/25 13:10 Pulse Oximetry 100 04/09/25 13:10 Oxygen Delivery Method Room Air 04/09/25 13:10 Course Orders Ordered: ED Orders 04/09/25 13:45 Complete Blood Count AUTO DIFF Stat Comprehensive Metabolic Panel Stat Lipase Stat Magnesium Stat NT-proBNP (BNP-Adult 18+) Stat PTT Partial Thromboplastin Gregg Stat Prothrombin Time INR Stat Troponin & CK Cardiac Panel Stat 04/09/25 13:52 XR shoulder RT 2+ views Stat 04/09/25 15:42 Trop I [Troponin I] Stat 04/09/25 15:45 EKG-12 Lead Stat Discontinued Medications Aspirin (Aspirin 81 Mg Chew Tab) 324 mg PO NOW ONE Stop: 04/09/25 13:32 Last Admin: 04/09/25 14:09 Dose: 324 mg Documented By: SAMMY Aspirin (Aspirin 81 Mg Chew Tab) 324 mg PO NOW ONE Stop: 04/09/25 13:33 Last Admin: 04/09/25 14:20 Dose: Not Given Documented By: SAMMY Metoprolol Tartrate (Metoprolol Tartrate 5 Mg/5 Ml Inj) 5 mg IV Q5M [facility] Stop: 04/09/25 14:41 Last Admin: 04/09/25 18:53 Dose: Not Given Documented By: Admin: 04/09/25 18:53 Dose: Not Given Documented By: Admin: 04/09/25 14:31 Dose: 5 mg Documented By: SAMMY Nitroglycerin (Nitroglycerin 0.4 Mg Sl Tab) 0.4 mg SL [id number] PRN PRN Reason: Chest Pain Last Admin: 04/09/25 14:24 Dose: 0.4 mg Documented By: SAMMY Vital Signs Vital signs: Vital Signs - 8 hr 04/09/25 14:50 04/09/25 14:53 04/09/25 14:53 Pulse Rate 73 63 Respiratory Rate 18 Blood Pressure 190/85 H Pulse Oximetry 04/09/25 14:55 04/09/25 14:55 04/09/25 15:00 Pulse Rate 65 63 Respiratory Rate 16 15 Blood Pressure 171/84 H Pulse Oximetry 98 100 04/09/25 15:00 04/09/25 15:05 04/09/25 15:05 Pulse Rate 60 Respiratory Rate 12 Blood Pressure 166/78 H 178/77 H Pulse Oximetry 100 04/09/25 15:10 04/09/25 15:10 04/09/25 15:15 Pulse Rate 68 65 Respiratory Rate 20 8 L Blood Pressure 183/83 H Pulse Oximetry 99 100 04/09/25 15:15 04/09/25 15:21 04/09/25 15:21 Pulse Rate 62 Respiratory Rate 17 Blood Pressure 180/85 H 176/117 H Pulse Oximetry 99 04/09/25 15:25 04/09/25 15:25 04/09/25 15:30 Pulse Rate 60 Respiratory Rate 17 Blood Pressure 159/89 H 155/78 H Pulse Oximetry 100 04/09/25 15:30 04/09/25 15:35 04/09/25 15:35 Pulse Rate 60 61 Respiratory Rate 13 17 Blood Pressure 161/83 H Pulse Oximetry 99 100 04/09/25 15:40 04/09/25 15:40 04/09/25 15:45 Pulse Rate 61 Respiratory Rate 19 Blood Pressure 153/72 H 151/71 H Pulse Oximetry 100 04/09/25 15:45 04/09/25 16:00 04/09/25 16:00 Pulse Rate 57 L 59 L Respiratory Rate 14 12 Blood Pressure 155/73 H Pulse Oximetry 99 99 04/09/25 16:15 04/09/25 16:15 04/09/25 16:30 Pulse Rate 59 L 64 Respiratory Rate 14 17 Blood Pressure 150/70 H Pulse Oximetry 99 99 04/09/25 16:30 04/09/25 16:46 04/09/25 16:46 Pulse Rate 64 Respiratory Rate 11 L Blood Pressure 161/72 H 164/63 H Pulse Oximetry 99 04/09/25 17:00 04/09/25 17:01 04/09/25 17:01 Pulse Rate 60 62 Respiratory Rate 11 L 12 Blood Pressure 168/70 H Pulse Oximetry 99 98 04/09/25 17:15 04/09/25 17:15 04/09/25 17:30 Pulse Rate 61 63 Respiratory Rate 14 13 Blood Pressure 156/75 H Pulse Oximetry 99 99 04/09/25 17:30 04/09/25 17:45 04/09/25 17:45 Pulse Rate 66 Respiratory Rate 14 Blood Pressure 165/79 H 152/79 H Pulse Oximetry 100 04/09/25 18:00 04/09/25 18:00 04/09/25 18:15 Pulse Rate 66 72 Respiratory Rate 19 17 Blood Pressure 148/76 H Pulse Oximetry 99 99 04/09/25 18:15 04/09/25 18:30 04/09/25 18:30 Pulse Rate 77 Respiratory Rate 24 Blood Pressure 186/86 H 173/77 H Pulse Oximetry 98 04/09/25 18:45 04/09/25 18:45 04/09/25 19:00 Pulse Rate 69 68 Respiratory Rate 15 16 Blood Pressure 179/75 H Pulse Oximetry 99 99 04/09/25 19:00 04/09/25 19:15 04/09/25 19:15 Pulse Rate 75 Respiratory Rate Blood Pressure 179/72 H 160/70 H Pulse Oximetry 96 04/09/25 19:30 04/09/25 19:30 04/09/25 19:45 Pulse Rate 70 69 Respiratory Rate 17 16 Blood Pressure 171/71 H Pulse Oximetry 99 99 04/09/25 19:45 Pulse Rate Respiratory Rate Blood Pressure 156/72 H Pulse Oximetry MDM - Extremity (Nontraumatic) Lab Data 04/09/25 13:45 04/09/25 13:45 Labs: Lab Results 04/09/25 04/09/25 Range/Units 13:45 15:42 WBC 7.8 (4.5-11.0) X10^3/uL RBC 3.98 L (4.5-5.9) X10^6/uL Hgb 11.6 L (13.5-17.5) g/dL Hct 34.2 L (41-53) % MCV 85.9 (80-100) fL MCH 29.1 (26-34) PG MCHC 33.9 (30-36) % RDW 15.3 H (11.6-14.8) % Plt Count 182 (150-400) X10^3/uL Neut % (Auto) 55.0 (50-75) % Lymph % (Auto) 27.2 (25-40) % Tucker % (Auto) 9.4 (3-14) % Eos % (Auto) 7.5 H (2-4) % Baso % (Auto) 0.9 (0-2) % Neut # (Auto) 4300 (1866-7927) /uL Lymph # (Auto) 2100 (6429-1889) /uL Tucker # (Auto) 700 (0-900) /uL Eos # (Auto) 600 H (0-450) /uL Baso # (Auto) 100 (0-100) /uL PT 10.2 (9.4-12.5) SECONDS INR 0.9 (0.9-1.3) APTT 17 L (25.1-36.5) SECONDS Sodium 141 (137-145) mmol/L Potassium 4.1 (3.4-5.1) mmol/L Chloride 109 H (98-107) mmol/L Carbon Dioxide 22 (22-32) mmol/L BUN 35 H (9-20) mg/dL Creatinine 1.93 H (0.66-1.25) mg/dL Estimated GFR 36 L (>60) mL/min BUN/Creatinine Ratio 18.1 (6-22) Glucose 98 (70-99) mg/dL Calcium 9.4 (8.4-10.2) mg/dL Magnesium 1.8 (1.6-2.3) mg/dL Total Bilirubin 0.9 (0.2-1.3) mg/dL AST 23 (17-59) IU/L ALT 17 (<50) IU/L Alkaline Phosphatase 95 (38-126) U/L Total Creatine Kinase 160 (55-170) U/L Troponin I < 0.012 < 0.012 (0.01-0.034) ng/mL NT-Pro-B Natriuret Pep 2540 H (<450) pg/mL Total Protein 7.7 (6.3-8.2) g/dL Albumin 4.4 (3.5-5.0) g/dL Globulin 3.3 (1.7-4.1) g/dL Albumin/Globulin Ratio 1.3 (1.0-2.8) Lipase 183 (23-300) U/L ECG Data Attestation EKG: I personally reviewed and interpreted this ECG as follows: Prior ECG tracings: available for review Interpretation: Sinus rhythm rate of 67 OR 202 QRS of 94 QTC 362, Q-wave in lead 3, inverted T-waves in 2 3 and AVF as well as some depression in lateral leads V5 6.? Patient has prior from 10/08/2024 appears similar to today.? EKG 2. Shows sinus rhythm prior inferior infarct T-wave abnormality rate of 60, OR 196 QRS of 94 with a QTC of 384.? Patient's EKG appears similar to EKG earlier today.??No dynamic changes appreciated. MDM Narrative Medical decision making narrative: Labs show white count of 7.8 hemoglobin 11.6 consistent with priors platelets are 182, INR 0.9, creatinine is 1.93 appears consistent with a baseline compared to January was 2.21 in September, chloride 109 sodium potassium are otherwise appropriate BUN 35 glucose is 98 troponins less than 0.012 with a BNP of 2540. Lipase is 183. Shoulder x-ray shows no acute change. Chest x-ray shows no acute change Sinus rhythm rate of 67 OR 202 QRS of 94 QTC 362, Q-wave in lead [address]-elevation depression V5. Patient has prior from 10/08/2024 appears similar to today. EKG 2. Shows sinus rhythm prior inferior infarct T-wave abnormality rate of 60, OR 196 QRS of 94 with a QTC of 384. Patient's EKG appears similar to EKG earlier today. Did not negative exercise myocardial perfusion scan for ischemia infarction average exercise tolerance on 10/27/2024. Had mild hypoperfusion inferior segment however there was increased subdiaphragmatic activity stress prone images has been perfusion defects. Spoke with cardiology, Dr. Silva @ [phone]. Reviewed findings and work up today. Dr. Silva reviewed patients chart at [facility]. Would like patient transferred to [facility]. Spoke with hospitalist at Loc[facility], Dr. Crump who accepts for transfer. Discharge Plan Departure Patient Disposition: [facility] Clinical Impression: Stable angina Prescriptions: No Action pantoprazole 40 mg tablet,delayed release (DR/EC) 40 mg PO DAILY Qty: 90 3RF nitroglycerin 0.4 mg tablet, sublingual 0.4 mg sublingual Q5-15M PRN (Reason: chest pain) Qty: 25 5RF atorvastatin 80 mg tablet 80 mg PO BEDTIME Qty: 90 3RF clopidogrel 75 mg tablet 75 mg PO DAILY Qty: 90 3RF metoprolol succinate 25 mg tablet extended release 24 hr 25 mg PO DAILY Qty: 90 3RF BUDESONIDE 0.6 mg capsule 1 cap Not Applicable BID Rx Instructions: BUDESONIDE SINUS 0.6MG USE THE CONTENTS OF 1 CAPSULE IN IRRIGATION DEVICE IN THE MORNING AND 1 CAPSULE IN THE EVENING. MIX WITH 1 CUP OF SALINE SOLUTION AND IRRIGATE EACH NOSTRIL WITH 1/2 OF MEDICATED SOLUTION. cholecalciferol (vitamin D3) 50 mcg (2,000 unit) capsule 50 mcg PO DAILY glucosamine [id number] 1 tab PO DAILY Jardiance 10 mg tablet 10 mg PO DAILY Qty: 90 3RF cetirizine 10 mg Tablet 10 mg PO DAILY aspirin 81 mg Tablet,Delayed Release (Dr/Ec) 81 mg PO DAILY Referrals: Peterson Porras MD [Primary Care Provider, Internal Medicine]
--- NOTE | 2025-04-09 15:45 | EKG_ITS ---
[place] [id number] [address] [place] [id number] Test Date: 2025-04-09 Pat Name: Calvin Charles Department: [facility] Room: Gender: Male Director [employer]: LISE : 1950 Requested By: Order Number: [id number] Reading MD: Meet Ruff MD Measurements Intervals [place] Rate: 60 P: 50 VT: 196 QRS: 6 QRSD: 94 T: -51 QT: 384 QTc: 384 Interpretive Statements Normal sinus rhythm Inferior infarct , age undetermined T wave abnormality, consider lateral ischemia NO SIGNIFICANT CHANGE FROM PRIOR TRACING Electronically Signed On 04-10-2025 7:25:07 PDT by Meet Ruff MD
[2025-04-09 16:16] LABS: Troponin I < 0.012 ng/mL (0.01-0.034)
== END 2025-04-09 20:00 | disposition short-term general hospital (02) ==
PROVIDERS: Emergency Medicine; Emergency Provider Emergency Medicine; PCP Internal Medicine
DX: I20.89 Other forms of angina pectoris (principal); I10 Essential (primary) hypertension
CPT/HCPCS: 36415; 71045; 73030; 80053; 82550; 83690; 83735; 83880; 84484; 85025; 85610; 85730; 93005; 93010; 99284

== ENCOUNTER → 2025-04-20 10:29 | Outpatient (CLI) | payer MEDICARE, SELFPAY ==
[2025-04-20 11:34] LABS: Hematocrit 32.6 % (41-53); Hemoglobin 10.8 g/dL (13.5-17.5); Mean Corpuscular HGB Conc 33.2 % (30-36); Mean Corpuscular Hemoglobin 29.4 PG (26-34); Mean Corpuscular Volume 88.4 fL (80-100); Platelet Count 257 X10^3/uL (150-400)
[2025-04-20 11:58] LABS: Alanine Aminotransferase 19 IU/L (<50); Albumin 4.2 g/dL (3.5-5.0); Albumin Globulin Ratio 1.5 (1.0-2.8); Alkaline Phosphatase 104 U/L (38-126); Blood Urea Nitrogen 26 mg/dL (9-20); Calcium 9.3 mg/dL (8.4-10.2); Carbon Dioxide 20 mmol/L (22-32); Chloride 109 mmol/L (98-107); Cholesterol 127 mg/dL (140-199); Estimated Glomerular Filt Rate 38 mL/min (>60); Globulin 2.8 g/dL (1.7-4.1); Glucose 103 mg/dL (70-99); HDL Cholesterol 42 mg/dL (40-60); HEMOLYSIS < 15 (0-50); Potassium 4.6 mmol/L (3.4-5.1); Sodium 139 mmol/L (137-145); Total Protein 7.0 g/dL (6.3-8.2); Triglycerides 112 mg/dL (35-150)
== END ==
PROVIDERS: PCP Internal Medicine; Referring Provider Internal Medicine; Visit Provider Internal Medicine
DX: I25.10 Atherosclerotic heart disease of native coronary artery without angina pectoris (principal); N18.32 Chronic kidney disease, stage 3b; E78.2 Mixed hyperlipidemia
CPT/HCPCS: 36415; 80053; 80061; 85027